=== PATIENT | male | born 1985 | race African-American/Black ===

== ENCOUNTER 2018-05-04 13:49 | Emergency (ER) | payer OTHER ==
[~2018-05-04] VITALS: Ht 177.8 cm; Wt 86.2 kg
[2018-05-04 13:49] VITALS: BP 131/73
[2018-05-04] MEDS ORDERED: PREDNISONE 20 M20 MG PO (14:20)
[2018-05-04] MEDS ORDERED: PENICILLIN VK500 M1 PO (14:20)
== END 2018-05-04 14:42 | disposition home or self-care (01) ==
LOC: ER 13:49
DX: J02.0 Streptococcal pharyngitis (principal)

== ENCOUNTER 2018-05-13 10:27 | Emergency (ER) | payer OTHER ==
[~2018-05-13] VITALS: Ht 175.3 cm; Wt 86.2 kg
[~2018-05-13 10:27] MED LIST: PENICILLIN VK500 M1 PO; PREDNISONE 20 M20 MG PO
[2018-05-13] MEDS ORDERED: CLEOCIN HCL150 MG PO (11:09)
[2018-05-13] MEDS ORDERED: PREDNISONE 20 M20 MG PO (11:09)
[2018-05-13 11:14] VITALS: BP 130/86
== END 2018-05-13 11:14 | disposition home or self-care (01) ==
LOC: ER 10:27
DX: J02.0 Streptococcal pharyngitis (principal); F17.210 Nicotine dependence, cigarettes, uncomplicated